=== PATIENT | male | born 1955 | race Two or more races ===

== ENCOUNTER 2020-02-09 20:14 | Inpatient (IN) | payer MEDICARE, MEDICAID ==
[~2020-02-09] VITALS: Ht 172.7 cm; Wt 78.0 kg
[2020-02-09] MEDS ORDERED: ALBUTEROL SULFATE 5 MG/ML 20 ML NEB SOLN [BULK] NEB ONE (20:15)
[2020-02-09] MEDS ORDERED: IPRATROPIUM BROMIDE 0.5 MG/2.5 ML NEB SOLUTION NEB ONE (20:15)
[2020-02-09] MEDS ORDERED: MethylPREDNISolone SOD SUCC 125 MG/2 ML VIAL IVP ONE (20:15)
[2020-02-09] MEDS ORDERED: UNKNOWN DIABETIC MED PO (20:27)
[2020-02-09] MEDS ORDERED: ALBU8HFA IH (20:27)
[2020-02-09 20:33] LABS: HEMATOCRIT 49.1 % (41-53); HEMOGLOBIN 15.7 g/dL (13.5-17.5); MEAN CORPUSCULAR HEMOGLOBIN 29.5 pg (26.0-34.0); MEAN CORPUSCULAR VOLUME 92 fL (80-100); PLATELET COUNT (AUTO) 342 K/uL (150-450); RED BLOOD CELL COUNT(AUTO) 5.32 MIL/uL (4.50-5.90); RED CELL DISTRIBUTION WIDTH 14.7 % (11.5-14.5)
[2020-02-09 20:46] LABS: CALCIUM, TOTAL 8.5 mg/dL (8.8-10.5); CREATININE 1.34 mg/dL (0.60-1.30)
[2020-02-09] MEDS ORDERED: AZITHROMYCIN 500 MG/NS 250 ML IV ONE (21:00)
[2020-02-09] MEDS ORDERED: CefTRIAXone 1 GM/DEXTROSE 50 ML IV ONE (21:00)
[2020-02-09] MEDS ORDERED: 0.9% SODIUM CHLORIDE 15 ML NEB SOLUTION NEB ONE (21:02)
[2020-02-09 21:10] LABS: ALBUMIN 2.4 g/dL (3.4-5.0); BILIRUBIN,TOTAL 0.5 mg/dL (0.1-1.0); TOTAL PROTEIN, SERUM 7.6 g/dL (6.4-8.2)
[2020-02-09] MEDS ORDERED: ONDANSETRON HCL 4 MG/2 ML VIAL IVP PRN ×2 (21:30→22:30)
[2020-02-09] MEDS ORDERED: ACETAMINOPHEN 325 MG TABLET PO PRN (21:30)
[2020-02-09] MEDS ORDERED: FUROSEMIDE 40 MG/4 ML VIAL IVP ONE (21:30)
[2020-02-09 21:42] LABS: ABG A-A DIFF O2 185.3 mmHg (10-20.0); ABG BASE EXCESS 7.3 mmol/L (-2.0-3.0); ABG CARBOXYHEMOGLOBIN 1.4 % (0.0-1.5); ABG HCO3 27.5 mmol/L (22.0-26.0); ABG METHEMOGLOBIN 0.3 % (0.0-1.5); ABG OXYGEN CONTENT 20.9 mL/dL (15.0-23.0); ABG OXYGEN SATURATION 92.3 % (95.0-98.0); ABG OXYHEMOGLOBIN 90.7 % (94.0-100.0); ABG PH 7.221 (7.35-7.450); ABG TOTAL HEMOGLOBIN 16.4 G/dL (12.0-18.0); PO2, ARTERIAL BG 73.2 mmHg (79.0-87.0); SOURCE, BLOOD GAS ARTERIAL; TEMPERATURE, FAHRENHEIT, BG 98.2 FAHREN (96.0-98.6)
[2020-02-09 21:44] LABS: ABG PCO2 87 mmHg (35-45); O2 DEVICE,BLOOD GAS BIPAP (ROOM AIR); SITE, BLOOD GAS RT RADIAL; SPONTANEOUS VT, BG 371 ml
[2020-02-09 22:03] LABS: BAND NEUTROPHILS % (MANUAL) 20 % (0-5); LYMPHOCYTES % (MANUAL) 8 % (22-44); MONOCYTES % (MANUAL) 10 % (2-9); MYELOCYTES % 2 % (0-0); REACTIVE LYMPHOCYTES 1 % (0-0); SEGMENTED NEUTROPHILS % 59 % (40-70)
[2020-02-09] MEDS ORDERED: 0.9% SODIUM CHLORIDE 10 ML SYRINGE IVP PRN (22:30)
[2020-02-09] MEDS ORDERED: RAPID SEQUENCE KIT [RSI] 1 EACH KIT ONE (22:50)
[2020-02-09] MEDS ORDERED: SUCCINYLCHOLINE CHLORIDE 20 MG/ML 10 ML VIAL ONE (22:51)
[2020-02-09] MEDS ORDERED: ALBUTEROL SULFATE 2.5 MG/0.5 ML NEB SOLUTION NEB SCH (23:00)
[2020-02-09] MEDS ORDERED: VANCOMYCIN HCL 1.5 GM in DEXTROSE 5%-WATER 250 ML IV ONE (23:00)
[2020-02-09] MEDS ORDERED: IPRATROPIUM BROMIDE 0.5 MG/2.5 ML NEB SOLUTION NEB SCH (23:00)
[2020-02-10] VITALS (7 sets, daily range): BP systolic 92–138; BP diastolic 63–84
[2020-02-10 00:34] LABS: INFLUENZA TYPE A NEGATIVE FOR TYPE A (NEGATIVE); INFLUENZA TYPE B NEGATIVE FOR TYPE B (NEGATIVE)
[2020-02-10 00:43] LABS: APPEARANCE,URINE CLEAR (CLEAR); BILIRUBIN,URINE NEGATIVE (NEGATIVE); GLUCOSE, URINE (UA) NEGATIVE (NEGATIVE); KETONES,URINE NEGATIVE (NEGATIVE); LEUKOCYTE ESTERASE ,URINE NEGATIVE (NEGATIVE); NITRATE,URINE NEGATIVE (NEGATIVE); OCCULT BLOOD,URINE TRACE (NEGATIVE); PH,URINE 5.5 (5.0-8.0); PROTEIN,URINE NEGATIVE (NEGATIVE)
[2020-02-10] MEDS ORDERED: SODIUM CHLORIDE 0.9% 1,000 ML IV ONE (00:45)
[2020-02-10] MEDS ORDERED: FentaNYL CITRATE-PF 100 MCG/2 ML VIAL IVP ONE (00:45)
[2020-02-10 00:58] LABS: BACTERIA,URINE None Seen /HPF (None Seen); WBC,URINE 0-2 /HPF (0-5)
[2020-02-10 00:59] LABS: COARSE GRANULAR CASTS,URINE 0-2 /LPF (None Seen); SQUAMOUS EPITHELIAL CELL,UR None Seen /LPF (None Seen)
[2020-02-10 01:09] LABS: ABG A-A DIFF O2 264.6 mmHg (10-20.0); ABG BASE EXCESS 0.6 mmol/L (-2.0-3.0); ABG CARBOXYHEMOGLOBIN 0.7 % (0.0-1.5); ABG HCO3 24.2 mmol/L (22.0-26.0); ABG METHEMOGLOBIN 0.5 % (0.0-1.5); ABG OXYGEN CONTENT 22.2 mL/dL (15.0-23.0); ABG OXYGEN SATURATION 99.7 % (95.0-98.0); ABG OXYHEMOGLOBIN 98.5 % (94.0-100.0); ABG PCO2 54 mmHg (35-45); ABG PH 7.315 (7.35-7.450); ABG TOTAL HEMOGLOBIN 15.3 G/dL (12.0-18.0); PO2, ARTERIAL BG 395.1 mmHg (79.0-87.0); SOURCE, BLOOD GAS ARTERIAL; TEMPERATURE, FAHRENHEIT, BG 98.2 FAHREN (96.0-98.6)
[2020-02-10 01:10] LABS: O2 DEVICE,BLOOD GAS VENTILATOR (ROOM AIR); PEEP,BG 5 cm H2O; SITE, BLOOD GAS RT RADIAL; SPONTANEOUS VT, BG 490 ml; VT, ABG 500 ml
[2020-02-10] MEDS: HEPARIN SODIUM,PORCINE 5,000 UNITS/ML VIAL SQ SCH ×3 (01:27→15:35)
[2020-02-10] MEDS: OSELTAMIVIR PHOSPHATE 75 MG CAPSULE GT SCH ×2 (01:27→09:00)
[2020-02-10] MEDS: PROPOFOL 1000 MG/ISO-OSM 100 ML IV PRN ×2 (02:33→03:57)
[2020-02-10] MEDS ORDERED: SODIUM CHLORIDE 0.9% 250 ML IV ONE (03:19)
[2020-02-10] MEDS: PIPERACILLIN/TAZO 3.375 GM/D5W 50 ML IV SCH ×4 (03:57→22:22)
[2020-02-10] MEDS ORDERED: INFLUENZA VIRUS VACCINE QVS 2019-20 (3YR+)/PF 60 MCG/0.5 ML SYRINGE IM ONE (05:15)
[2020-02-10 06:17] LABS: HEMATOCRIT 45.2 % (41-53); HEMOGLOBIN 14.2 g/dL (13.5-17.5); MEAN CORPUSCULAR HEMOGLOBIN 29.2 pg (26.0-34.0); MEAN CORPUSCULAR HGB CONC 31.5 G/dL (31.0-37.0); MEAN CORPUSCULAR VOLUME 93 fL (80-100); PLATELET COUNT (AUTO) 304 K/uL (150-450); RED BLOOD CELL COUNT(AUTO) 4.88 MIL/uL (4.50-5.90); RED CELL DISTRIBUTION WIDTH 14.4 % (11.5-14.5)
[2020-02-10 06:23] LABS: ANION GAP 7 mmol/L (8-16); CALCIUM, TOTAL 7.3 mg/dL (8.8-10.5); CARBON DIOXIDE 32 mmol/L (22-29); CHLORIDE 102 mmol/L (98-107); CREATININE 1.19 mg/dL (0.60-1.30); GLOMERULAR FILTR. RATE CALC > 60 mL/min (>60); GLUCOSE,RANDOM 241 mg/dL (70-110); POTASSIUM 4.8 mmol/L (3.5-5.1); SODIUM SERUM 141 mmol/L (136-145); UREA NITROGEN, BLOOD 37 mg/dL (7-18)
[2020-02-10] MEDS ORDERED: VANCOMYCIN HCL 750 MG in DEXTROSE 5%-WATER 250 ML IV SCH (07:00)
[2020-02-10 08:30] LABS: BAND NEUTROPHILS % (MANUAL) 15 % (0-5); EOSINOPHILS % (MANUAL) 1 % (1-6); LYMPHOCYTES % (MANUAL) 7 % (22-44); MONOCYTES % (MANUAL) 8 % (2-9); SEGMENTED NEUTROPHILS % 69 % (40-70)
[2020-02-10] MEDS: PANTOPRAZOLE SODIUM 40 MG/VIAL IVP SCH (08:31)
[2020-02-10 08:32] LABS: PLATELET MORPHOLOGY COMMENT GIANT PLTS; WBC MORPHOLOGY TOXIC GRANULATION
[2020-02-10] MEDS: PROPOFOL 1000 MG/ISO-OSM 100 ML IV SCH ×2 (09:58→18:07)
[2020-02-10] MEDS: IPRATROPIUM BROMIDE 0.5 MG/2.5 ML NEB SOLUTION NEB PRN (11:41)
[2020-02-10] MEDS: ALBUTEROL SULFATE 2.5 MG/0.5 ML NEB SOLUTION NEB PRN (11:42)
[2020-02-10] MEDS ORDERED: ETOMIDATE 2 MG/ML 10 ML VIAL IV ONE (14:39)
[2020-02-10] MEDS ORDERED: ROCURONIUM BROMIDE 10 MG/ML 5 ML VIAL IV ONE (14:39)
[2020-02-10] MEDS: VANCOMYCIN HCL 1 GM/D5% WATER 200 ML IV SCH (18:07)
[2020-02-10] MEDS: DOXYCYCLINE HYCLATE 100 MG in DEXTROSE 5%-WATER 100 ML IV SCH (20:30)
[2020-02-10] MEDS ORDERED: AZITHROMYCIN 500 MG/NS 250 ML IV SCH (23:00)
[2020-02-11] VITALS: BP 101/66
[2020-02-11] MEDS: HEPARIN SODIUM,PORCINE 5,000 UNITS/ML VIAL SQ SCH ×3 (00:35→15:05)
[2020-02-11 04:00] VITALS: BP 97/67
[2020-02-11] MEDS: PIPERACILLIN/TAZO 3.375 GM/D5W 50 ML IV SCH ×4 (04:02→22:13)
[2020-02-11] MEDS: PROPOFOL 1000 MG/ISO-OSM 100 ML IV SCH ×3 (05:03→13:04)
[2020-02-11 06:23] LABS: MEAN CORPUSCULAR HEMOGLOBIN 29.6 pg (26.0-34.0); MEAN CORPUSCULAR HGB CONC 32.4 G/dL (31.0-37.0); MEAN CORPUSCULAR VOLUME 91 fL (80-100); PLATELET COUNT (AUTO) 292 K/uL (150-450); RED BLOOD CELL COUNT(AUTO) 4.71 MIL/uL (4.50-5.90); RED CELL DISTRIBUTION WIDTH 14.1 % (11.5-14.5)
[2020-02-11] MEDS: VANCOMYCIN HCL 1 GM/D5% WATER 200 ML IV SCH ×2 (06:35→17:45)
[2020-02-11 06:42] LABS: CALCIUM, TOTAL 7.8 mg/dL (8.8-10.5); CREATININE 1.21 mg/dL (0.60-1.30); POTASSIUM 4.5 mmol/L (3.5-5.1); VANCOMYCIN,RANDOM 14.4 mcg/mL (25.0-50.0)
[2020-02-11 08:00] VITALS: BP 89/61
[2020-02-11] MEDS: PANTOPRAZOLE SODIUM 40 MG/VIAL IVP SCH (08:03)
[2020-02-11] MEDS: DOXYCYCLINE HYCLATE 100 MG in DEXTROSE 5%-WATER 100 ML IV SCH ×2 (09:17→21:59)
[2020-02-11 09:24] LABS: BAND NEUTROPHILS % (MANUAL) 10 % (0-5); LYMPHOCYTES % (MANUAL) 5 % (22-44); MONOCYTES % (MANUAL) 6 % (2-9); SEGMENTED NEUTROPHILS % 79 % (40-70)
[2020-02-11] MEDS: ALBUTEROL SULFATE 2.5 MG/0.5 ML NEB SOLUTION NEB PRN ×4 (11:18→22:41)
[2020-02-11] MEDS: IPRATROPIUM BROMIDE 0.5 MG/2.5 ML NEB SOLUTION NEB PRN ×4 (11:18→22:41)
[2020-02-11 12:00] VITALS: BP 92/61
[2020-02-11] MEDS ORDERED: SODIUM CHLORIDE 0.9% 500 ML IV ONE (13:31)
[2020-02-11] MEDS: DEXMEDETOMIDINE HCL 200 MCG in SODIUM CHLORIDE 0.9% 48 ML IV SCH (14:29)
[2020-02-11 16:00] VITALS: BP 129/69
[2020-02-11 19:50] LABS: AMPHET/METH SCREEN,URINE NEGATIVE (NEGATIVE); BARBITURATE SCREEN, URINE NEGATIVE (NEGATIVE); BENZODIAZEPINES SCREEN,URINE NEGATIVE (NEGATIVE); CANNABINOID SCREEN,URINE NEGATIVE (NEGATIVE); COCAINE SCREEN,URINE NEGATIVE (NEGATIVE); METHADONE SCREEN, URINE NEGATIVE (NEGATIVE); OPIATE SCREEN,URINE NEGATIVE (NEGATIVE); PHENCYCLIDINE SCREEN,URINE NEGATIVE (NEGATIVE)
[2020-02-11 20:00] VITALS: BP 104/71
[2020-02-11] MEDS ORDERED: SODIUM CHLORIDE 0.9% 250 ML IV ONE (21:40)
[2020-02-12] VITALS: BP 86/61
[2020-02-12] MEDS: FentaNYL CITRATE PF 500 MCG in DEXTROSE 5%-WATER 90 ML IV PRN ×2 (00:05→11:36)
[2020-02-12] MEDS: DEXMEDETOMIDINE HCL 200 MCG in SODIUM CHLORIDE 0.9% 48 ML IV SCH ×2 (00:06→10:17)
[2020-02-12] MEDS: HEPARIN SODIUM,PORCINE 5,000 UNITS/ML VIAL SQ SCH ×6 (00:25→23:27)
[2020-02-12] MEDS ORDERED: LORazepam 2 MG/ML VIAL IVP PRN (02:00)
[2020-02-12] MEDS: ALBUTEROL SULFATE 2.5 MG/0.5 ML NEB SOLUTION NEB PRN ×2 (02:58→08:05)
[2020-02-12] MEDS: IPRATROPIUM BROMIDE 0.5 MG/2.5 ML NEB SOLUTION NEB PRN ×2 (02:58→08:06)
[2020-02-12] MEDS ORDERED: NOREPINEPHRINE 4 MG/D5%-WATER 250 ML IV PRN (03:56)
[2020-02-12 04:00] VITALS: BP 79/58
[2020-02-12] MEDS: PIPERACILLIN/TAZO 3.375 GM/D5W 50 ML IV SCH ×3 (04:18→15:50)
[2020-02-12 06:43] LABS: HEMATOCRIT 46.7 % (41-53); HEMOGLOBIN 15.3 g/dL (13.5-17.5); MEAN CORPUSCULAR HEMOGLOBIN 30.1 pg (26.0-34.0); MEAN CORPUSCULAR HGB CONC 32.8 G/dL (31.0-37.0); MEAN CORPUSCULAR VOLUME 92 fL (80-100); PLATELET COUNT (AUTO) 311 K/uL (150-450); RED CELL DISTRIBUTION WIDTH 14.2 % (11.5-14.5)
[2020-02-12 06:46] LABS: INR 1.1 (0.9-1.1); PROTHROMBIN TIME 11.4 SEC (9.4-11.6)
[2020-02-12 06:56] LABS: ALANINE AMINOTRANSFERASE 98 U/L (12-78); ALKALINE PHOSPHATASE 162 U/L (46-116); ANION GAP 4 mmol/L (8-16); ASPARTATE AMINOTRANSFERASE 53 U/L (15-37); BILIRUBIN,TOTAL 0.7 mg/dL (0.1-1.0); CALCIUM, TOTAL 7.9 mg/dL (8.8-10.5); CARBON DIOXIDE 34 mmol/L (22-29); CHLORIDE 101 mmol/L (98-107); GLOMERULAR FILTR. RATE CALC > 60 mL/min (>60); GLUCOSE,RANDOM 149 mg/dL (70-110); POTASSIUM 4.3 mmol/L (3.5-5.1); SODIUM SERUM 139 mmol/L (136-145); TOTAL PROTEIN, SERUM 6.6 g/dL (6.4-8.2); UREA NITROGEN, BLOOD 30 mg/dL (7-18); VANCOMYCIN,RANDOM 16.7 mcg/mL (25.0-50.0)
[2020-02-12] MEDS: VANCOMYCIN HCL 1 GM/D5% WATER 200 ML IV SCH ×2 (07:36→15:51)
[2020-02-12 08:00] VITALS: BP 112/68
[2020-02-12] MEDS: PANTOPRAZOLE SODIUM 40 MG/VIAL IVP SCH (08:41)
[2020-02-12 08:52] LABS: BAND NEUTROPHILS % (MANUAL) 4 % (0-5); LYMPHOCYTES % (MANUAL) 14 % (22-44); MONOCYTES % (MANUAL) 12 % (2-9); SEGMENTED NEUTROPHILS % 70 % (40-70)
[2020-02-12] MEDS: DOXYCYCLINE HYCLATE 100 MG in DEXTROSE 5%-WATER 100 ML IV SCH (10:16)
[2020-02-12] MEDS ORDERED: 0.9% SODIUM CHLORIDE 5 ML NEB SOLUTION NEB ONE (10:58)
[2020-02-12] MEDS ORDERED: ALBUTEROL SULFATE 2.5 MG/0.5 ML NEB SOLUTION NEB ONE (10:58)
[2020-02-12 12:00] VITALS: BP 130/75
[2020-02-12] MEDS: ALBUTEROL SULFATE 2.5 MG/0.5 ML NEB SOLUTION NEB SCH ×3 (15:00→23:00)
[2020-02-12] MEDS: IPRATROPIUM BROMIDE 0.5 MG/2.5 ML NEB SOLUTION NEB SCH ×3 (15:00→23:00)
[2020-02-12] MEDS: LEVOFLOXACIN 250 MG TABLET PO SCH (16:30)
[2020-02-12 20:00] VITALS: BP 126/66
[2020-02-13] VITALS: BP 118/74
[2020-02-13] MEDS: IPRATROPIUM BROMIDE 0.5 MG/2.5 ML NEB SOLUTION NEB SCH ×6 (03:00→23:47)
[2020-02-13] MEDS: ALBUTEROL SULFATE 2.5 MG/0.5 ML NEB SOLUTION NEB SCH ×6 (03:00→23:46)
[2020-02-13 04:00] VITALS: BP 130/70
[2020-02-13 06:06] LABS: ANION GAP 2 mmol/L (8-16); CALCIUM, TOTAL 8.3 mg/dL (8.8-10.5); CARBON DIOXIDE 35 mmol/L (22-29); CHLORIDE 103 mmol/L (98-107); CREATININE 0.82 mg/dL (0.60-1.30); GLOMERULAR FILTR. RATE CALC > 60 mL/min (>60); GLUCOSE,RANDOM 87 mg/dL (70-110); POTASSIUM 4.3 mmol/L (3.5-5.1); SODIUM SERUM 140 mmol/L (136-145); UREA NITROGEN, BLOOD 18 mg/dL (7-18)
[2020-02-13 08:00] VITALS: BP 105/62
[2020-02-13] MEDS: HEPARIN SODIUM,PORCINE 5,000 UNITS/ML VIAL SQ SCH ×3 (08:00→23:59)
[2020-02-13] MEDS: PANTOPRAZOLE SODIUM 40 MG/VIAL IVP SCH (08:11)
[2020-02-13] MEDS: LEVOFLOXACIN 250 MG TABLET PO SCH (08:11)
[2020-02-13 12:00] VITALS: BP 125/87
[2020-02-13 16:00] VITALS: BP 100/60
[2020-02-13 21:06] VITALS: BP 159/97
[2020-02-14 00:03] VITALS: BP 111/62
[2020-02-14] MEDS: IPRATROPIUM BROMIDE 0.5 MG/2.5 ML NEB SOLUTION NEB SCH ×4 (03:00→15:00)
[2020-02-14] MEDS: ALBUTEROL SULFATE 2.5 MG/0.5 ML NEB SOLUTION NEB SCH ×4 (03:00→15:00)
[2020-02-14 04:05] VITALS: BP 121/68
[2020-02-14 08:16] LABS: ANION GAP 0 mmol/L (8-16); CARBON DIOXIDE 37 mmol/L (22-29); CHLORIDE 101 mmol/L (98-107); CREATININE 0.76 mg/dL (0.60-1.30); GLOMERULAR FILTR. RATE CALC > 60 mL/min (>60); GLUCOSE,RANDOM 138 mg/dL (70-110); POTASSIUM 4.2 mmol/L (3.5-5.1); SODIUM SERUM 138 mmol/L (136-145); UREA NITROGEN, BLOOD 19 mg/dL (7-18)
[2020-02-14 08:22] VITALS: BP 99/51
[2020-02-14] MEDS: HEPARIN SODIUM,PORCINE 5,000 UNITS/ML VIAL SQ SCH (09:29)
[2020-02-14] MEDS: LEVOFLOXACIN 250 MG TABLET PO SCH (09:30)
[2020-02-14] MEDS: PANTOPRAZOLE SODIUM 40 MG/VIAL IVP SCH (09:30)
[2020-02-14 15:52] LABS: LEGIONELLA PNEUMO AG URINE Negative (Negative); ORGANISM ID Not indicated.; S PNEUMO SOURCE Urine; STREP PNEUMONIAE AG URINE Negative (Negative); STREP.PNEUMO BODY FLUID CULT. Not indicated.
== END 2020-02-14 14:40 | disposition left against medical advice (07) | DRG 871 ==
LOC: EMS 20:16 → ICU 22:30 → 5N 02-13 19:50
PROVIDERS: ADMIT Internal Medicine; ATTEND Internal Medicine
PROC: 5A09357 Assistance with Respiratory Ventilation, Less than 24 Consecutive Hours, Continuous Positive Airway Pressure (ICD-10-PCS; 2020-02-09)
PROC: 5A1945Z Respiratory Ventilation, 24-96 Consecutive Hours (ICD-10-PCS; principal; 2020-02-10)
PROC: 0BH17EZ Insertion of Endotracheal Airway into Trachea, Via Natural or Artificial Opening (ICD-10-PCS; 2020-02-10)
DX: A41.9 Sepsis, unspecified organism (principal); J18.9 Pneumonia, unspecified organism; J96.01 Acute respiratory failure with hypoxia; J96.02 Acute respiratory failure with hypercapnia; E43 Unspecified severe protein-calorie malnutrition; J44.1 Chronic obstructive pulmonary disease with (acute) exacerbation; J44.0 Chronic obstructive pulmonary disease with (acute) lower respiratory infection; E87.2 Acidosis; E11.9 Type 2 diabetes mellitus without complications; I50.9 Heart failure, unspecified; Z53.29 Procedure and treatment not carried out because of patient's decision for other reasons; Z68.26 Body mass index [BMI] 26.0-26.9, adult
CPT/HCPCS: 36600; 71250; 80307; 82805; 83605; 83735; 87015; 87040; 87081; 87206; 87449; 87635; 87804; 87899; 92610; 93005; 93306; 93970; 94002; 94003; 94640; 94660; 99291; C9113; G0378; J0330; J0456; J0696; J1644; J1940; J2060; J2543; J2704; J2930; J3010; J3370; J3490; J7030; J7040; J7050; J7060

== ENCOUNTER → 2022-06-24 | Outpatient (CLI) | payer MEDICARE, MEDICAID ==
[~2022-06-24] VITALS: Ht 162.6 cm; Wt 66.0 kg
[~2022-06-24] MED LIST: ALBU8HFA IH; UNKNOWN DIABETIC MED PO
[2022-06-24 16:00] VITALS: BP 112/62
== END | disposition home or self-care (01) ==
LOC: SRCNTR 14:19
PROVIDERS: ATTEND Internal Medicine
DX: E11.9 Type 2 diabetes mellitus without complications (principal); J44.9 Chronic obstructive pulmonary disease, unspecified; J18.9 Pneumonia, unspecified organism; Z87.891 Personal history of nicotine dependence
CPT/HCPCS: 93005; G0463

== ENCOUNTER 2022-08-10 16:43 | Inpatient (IN) | payer MEDICARE, MEDICAID ==
[~2022-08-10] VITALS: Ht 167.6 cm; Wt 64.8 kg
[2022-08-10 18:09] LABS: BASOPHILS % (AUTO) 0.7 % (0.0-2.0); EOSINOPHILS % (AUTO) 7.2 % (1.0-6.0); HEMATOCRIT 43.4 % (41-53); HEMOGLOBIN 14.6 g/dL (13.5-17.5); LYMPHOCYTES # (AUTO) 1.7 K/uL (1.0-4.8); LYMPHOCYTES % (AUTO) 20.6 % (22.0-44.0); MEAN CORPUSCULAR HEMOGLOBIN 29.3 pg (26.0-34.0); MEAN CORPUSCULAR HGB CONC 33.5 G/dL (31.0-37.0); MEAN CORPUSCULAR VOLUME 87 fL (80-100); MONOCYTES # (AUTO) 1.2 K/uL (0.1-1.0); MONOCYTES % (AUTO) 13.8 % (2.0-9.0); NEUTROPHILS # (AUTO) 4.9 K/uL (1.8-7.7); NEUTROPHILS % (AUTO) 57.7 % (40.0-70.0); PLATELET COUNT (AUTO) 228 K/uL (150-450); RED BLOOD CELL COUNT(AUTO) 4.98 MIL/uL (4.50-5.90); RED CELL DISTRIBUTION WIDTH 14.7 % (11.5-14.5)
[2022-08-10 18:23] LABS: LACTIC ACID 0.8 mmol/L (0.4-2.0)
[2022-08-10 18:27] LABS: ANION GAP 7 mmol/L (8-16); CALCIUM, TOTAL 8.9 mg/dL (8.8-10.5); CARBON DIOXIDE 29 mmol/L (22-29); CHLORIDE 104 mmol/L (98-107); CREATININE 0.76 mg/dL (0.60-1.30); GLUCOSE,RANDOM 120 mg/dL (70-110); POTASSIUM 3.7 mmol/L (3.5-5.1); SODIUM SERUM 140 mmol/L (136-145); UREA NITROGEN, BLOOD 23 mg/dL (7-18)
[2022-08-10 18:29] LABS: GLOMERULAR FILTR. RATE CALC > 60 mL/min (>60)
[2022-08-10] MEDS ORDERED: QUEtiapine FUMARATE 100 MG TABLET PO ONE (18:30)
[2022-08-10] MEDS ORDERED: LORazepam 2 MG TABLET PO ONE (18:30)
[2022-08-10 18:32] LABS: ALANINE AMINOTRANSFERASE 39 U/L (12-78); ALKALINE PHOSPHATASE 114 U/L (46-116); ASPARTATE AMINOTRANSFERASE 29 U/L (15-37); BILIRUBIN,TOTAL 0.3 mg/dL (0.1-1.0); LIPASE 116 U/L (73-393); TOTAL PROTEIN, SERUM 6.8 g/dL (6.4-8.2)
[2022-08-10 18:36] LABS: AMMONIA 14 umol/L (11-32)
[2022-08-10 18:37] LABS: ALBUMIN 3.3 g/dL (3.4-5.0)
[2022-08-10 19:28] LABS: COVID AG,FIA SOURCE NASOPHARYNGEAL
[2022-08-10] MEDS ORDERED: ONDANSETRON HCL 4 MG/2 ML VIAL IVP PRN ×2 (19:45→21:00)
[2022-08-10] MEDS ORDERED: ACETAMINOPHEN 325 MG TABLET PO PRN ×2 (19:45→21:00)
[2022-08-10] MEDS ORDERED: 0.9% SODIUM CHLORIDE 10 ML SYRINGE IVP PRN (19:45)
[2022-08-10 19:46] LABS: INFLUENZA TYPE A NEGATIVE FOR TYPE A (NEGATIVE); INFLUENZA TYPE B NEGATIVE FOR TYPE B (NEGATIVE)
[2022-08-10] MEDS ORDERED: ALBUTEROL SULFATE 2.5 MG/0.5 ML NEB SOLUTION NEB PRN (21:00)
[2022-08-10] MEDS ORDERED: IPRATROPIUM BROMIDE 0.5 MG/2.5 ML NEB SOLUTION NEB PRN (21:00)
[2022-08-10] MEDS ORDERED: IOHEXOL 350 MG/ML 100 ML VIAL ONE (21:10)
[2022-08-10] MEDS ORDERED: SODIUM CHLORIDE 0.9% 100 ML ONE (21:10)
[2022-08-10 21:11] LABS: ABG BASE EXCESS 1.1 mmol/L (-2.0-3.0); ABG HCO3 25.4 mmol/L (22.0-26.0); ABG METHEMOGLOBIN 0.3 % (0.0-1.5); ABG OXYGEN CONTENT 19.2 mL/dL (15.0-23.0); ABG OXYGEN SATURATION 93.9 % (95.0-98.0); ABG OXYHEMOGLOBIN 93.6 % (94.0-100.0); ABG PCO2 40 mmHg (35-45); ABG PH 7.425 (7.35-7.450); ABG TOTAL HEMOGLOBIN 14.6 G/dL (12.0-18.0); O2 DEVICE,BLOOD GAS ROOM AIR (ROOM AIR); PO2, ARTERIAL BG 66.8 mmHg (79.0-87.0); SITE, BLOOD GAS RT RADIAL; SOURCE, BLOOD GAS ARTERIAL; TEMPERATURE, FAHRENHEIT, BG 98.6 FAHREN (96.0-98.6)
[2022-08-10] MEDS ORDERED: DEXTROSE 50%-WATER 25 GM/50 ML SYRINGE IVP PRN (21:30)
[2022-08-10] MEDS ORDERED: INSULIN LISPRO 100 UNITS/ML SQ PRN (21:30)
[2022-08-10] MEDS: HEPARIN SODIUM,PORCINE 5,000 UNITS/ML VIAL SQ SCH (23:06)
[2022-08-11 01:25] VITALS: BP 93/55
[2022-08-11] MEDS ORDERED: INSLAN SQ (04:06)
[2022-08-11] MEDS ORDERED: [UNRECOGNIZED DRUG - REMARK] CHEW (04:06)
[2022-08-11] MEDS ORDERED: ACET-784 PO (04:07)
[2022-08-11] MEDS ORDERED: SODIUM CHLORIDE 0.9% 250 ML IV ONE (04:15)
[2022-08-11 06:02] VITALS: BP 97/54
[2022-08-11 06:27] LABS: CALCIUM, TOTAL 8.8 mg/dL (8.8-10.5); CARBON DIOXIDE 28 mmol/L (22-29); GLUCOSE,RANDOM 126 mg/dL (70-110); UREA NITROGEN, BLOOD 24 mg/dL (7-18)
[2022-08-11 06:33] LABS: ANION GAP -1 mmol/L (8-16); CHLORIDE 107 mmol/L (98-107); SODIUM SERUM 134 mmol/L (136-145)
[2022-08-11 06:37] LABS: GLOMERULAR FILTR. RATE CALC > 60 mL/min (>60)
[2022-08-11 06:46] LABS: GLUCOMETER DEV NAME(LOC) 5S.2B; GLUCOSE,POINT OF CARE 107 MG/DL (70-110)
[2022-08-11 07:52] VITALS: BP 96/60
[2022-08-11] MEDS: HEPARIN SODIUM,PORCINE 5,000 UNITS/ML VIAL SQ SCH ×3 (09:04→23:06)
[2022-08-11 10:35] VITALS: BP 95/64
[2022-08-11 13:39] LABS: FREE T4 (FREE THYROXINE) 1.28 ng/dL (0.76-1.46); THYROID STIMULATING HORMONE 0.76 uIU/mL (0.36-3.74)
[2022-08-11 15:03] VITALS: BP 99/58
[2022-08-11 20:16] LABS: GLUCOMETER DEV NAME(LOC) 5S.2B; GLUCOSE,POINT OF CARE 95 MG/DL (70-110)
[2022-08-11] MEDS: INSULIN GLARGINE,HUM.REC.ANLOG 100 UNITS/ML SQ SCH (20:31)
[2022-08-11 21:15] VITALS: BP 98/62
[2022-08-11 21:17] LABS: GLUCOMETER DEV NAME(LOC) 5S.2B; GLUCOSE,POINT OF CARE 118 MG/DL (70-110)
[2022-08-12 00:55] VITALS: BP 92/43
[2022-08-12 04:50] VITALS: BP 104/67
[2022-08-12 07:16] LABS: BASOPHILS % (AUTO) 0.7 % (0.0-2.0); HEMATOCRIT 43.2 % (41-53); HEMOGLOBIN 14.3 g/dL (13.5-17.5); LYMPHOCYTES % (AUTO) 22.9 % (22.0-44.0); MEAN CORPUSCULAR HEMOGLOBIN 29.1 pg (26.0-34.0); MEAN CORPUSCULAR HGB CONC 33.1 G/dL (31.0-37.0); MEAN CORPUSCULAR VOLUME 88 fL (80-100); MONOCYTES # (AUTO) 0.8 K/uL (0.1-1.0); MONOCYTES % (AUTO) 9.7 % (2.0-9.0); NEUTROPHILS # (AUTO) 5.2 K/uL (1.8-7.7); NEUTROPHILS % (AUTO) 60.7 % (40.0-70.0); PLATELET COUNT (AUTO) 209 K/uL (150-450); RED BLOOD CELL COUNT(AUTO) 4.91 MIL/uL (4.50-5.90); RED CELL DISTRIBUTION WIDTH 14.3 % (11.5-14.5)
[2022-08-12 07:42] LABS: ALANINE AMINOTRANSFERASE 23 U/L (12-78); ALKALINE PHOSPHATASE 94 U/L (46-116); ANION GAP 4 mmol/L (8-16); ASPARTATE AMINOTRANSFERASE 18 U/L (15-37); BILIRUBIN,TOTAL 0.4 mg/dL (0.1-1.0); CALCIUM, TOTAL 8.7 mg/dL (8.8-10.5); CARBON DIOXIDE 29 mmol/L (22-29); CHLORIDE 110 mmol/L (98-107); CREATININE 0.73 mg/dL (0.60-1.30); GLUCOSE,RANDOM 88 mg/dL (70-110); POTASSIUM 3.8 mmol/L (3.5-5.1); SODIUM SERUM 143 mmol/L (136-145); TOTAL PROTEIN, SERUM 6.5 g/dL (6.4-8.2); UREA NITROGEN, BLOOD 20 mg/dL (7-18)
[2022-08-12 07:45] LABS: GLOMERULAR FILTR. RATE CALC > 60 mL/min (>60)
[2022-08-12 08:03] VITALS: BP 110/78
[2022-08-12] MEDS: HEPARIN SODIUM,PORCINE 5,000 UNITS/ML VIAL SQ SCH ×2 (09:11→15:57)
[2022-08-12 10:32] VITALS: BP 117/66
[2022-08-12 12:22] LABS: APPEARANCE,URINE CLEAR (CLEAR); BILIRUBIN,URINE NEGATIVE (NEGATIVE); GLUCOSE, URINE (UA) NEGATIVE (NEGATIVE); KETONES,URINE NEGATIVE (NEGATIVE); LEUKOCYTE ESTERASE ,URINE NEGATIVE (NEGATIVE); NITRATE,URINE NEGATIVE (NEGATIVE); OCCULT BLOOD,URINE NEGATIVE (NEGATIVE); PH,URINE 5.5 (5.0-8.0); PROTEIN,URINE TRACE mg/dL (NEGATIVE); SPECIFIC GRAVITIY, URINE 1.037 (1.003-1.030); UROBILINOGEN,URINE <=1.0 mg/dL (<=1.0)
[2022-08-12 12:28] LABS: AMPHET/METH SCREEN,URINE POSITIVE (NEGATIVE); BARBITURATE SCREEN, URINE NEGATIVE (NEGATIVE); BENZODIAZEPINES SCREEN,URINE NEGATIVE (NEGATIVE); CANNABINOID SCREEN,URINE NEGATIVE (NEGATIVE); COCAINE SCREEN,URINE NEGATIVE (NEGATIVE); METHADONE SCREEN, URINE NEGATIVE (NEGATIVE); OPIATE SCREEN,URINE NEGATIVE (NEGATIVE)
[2022-08-12 12:29] LABS: PHENCYCLIDINE SCREEN,URINE NEGATIVE (NEGATIVE)
[2022-08-12 12:34] LABS: BACTERIA,URINE None Seen /HPF (None Seen); RBC,URINE None Seen /HPF (0-2); WBC,URINE None Seen /HPF (0-5)
[2022-08-12 14:46] VITALS: BP 124/78
[2022-08-12 20:53] VITALS: BP 106/43
[2022-08-12] MEDS: INSULIN GLARGINE,HUM.REC.ANLOG 100 UNITS/ML SQ SCH (21:00)
[2022-08-12 21:26] LABS: GLUCOMETER DEV NAME(LOC) 5S.2B; GLUCOSE,POINT OF CARE 144 MG/DL (70-110)
[2022-08-12 23:21] LABS: GLUCOMETER DEV NAME(LOC) 5N.3; GLUCOSE,POINT OF CARE 109 MG/DL (70-110)
[2022-08-12 23:21] LABS: GLUCOMETER DEV NAME(LOC) 5N.3; GLUCOSE,POINT OF CARE 80 MG/DL (70-110)
[2022-08-13] MEDS: HEPARIN SODIUM,PORCINE 5,000 UNITS/ML VIAL SQ SCH ×3 (00:07→15:16)
[2022-08-13 00:29] VITALS: BP 93/51
[2022-08-13 05:30] VITALS: BP 98/53
[2022-08-13 08:59] VITALS: BP 107/67
[2022-08-13 12:43] VITALS: BP 96/54
[2022-08-13 14:36] LABS: GLUCOMETER DEV NAME(LOC) 5S.2B; GLUCOSE,POINT OF CARE 85 MG/DL (70-110)
[2022-08-13 15:02] VITALS: BP 116/62
[2022-08-13 20:40] VITALS: BP 95/67
[2022-08-13] MEDS: INSULIN GLARGINE,HUM.REC.ANLOG 100 UNITS/ML SQ SCH (20:54)
[2022-08-14 00:19] VITALS: BP 115/47
[2022-08-14] MEDS: HEPARIN SODIUM,PORCINE 5,000 UNITS/ML VIAL SQ SCH ×2 (00:40→09:19)
[2022-08-14 02:07] VITALS: BP 105/45
[2022-08-14 04:44] VITALS: BP 104/53
[2022-08-14 04:51] LABS: GLUCOMETER DEV NAME(LOC) 5N.3; GLUCOSE,POINT OF CARE 95 MG/DL (70-110)
[2022-08-14 04:52] LABS: GLUCOMETER DEV NAME(LOC) 5N.3; GLUCOSE,POINT OF CARE 118 MG/DL (70-110)
[2022-08-14 04:52] LABS: GLUCOMETER DEV NAME(LOC) 5N.3; GLUCOSE,POINT OF CARE 115 MG/DL (70-110)
[2022-08-14 07:06] LABS: GLUCOMETER DEV NAME(LOC) 6N.1; GLUCOSE,POINT OF CARE 94 MG/DL (70-110)
[2022-08-14 08:00] VITALS: BP 95/55
[2022-08-14 13:47] LABS: GLUCOMETER DEV NAME(LOC) 6N.2B; GLUCOSE,POINT OF CARE 102 MG/DL (70-110)
[2022-08-14 14:06] LABS: LEGIONELLA PNEUMO AG URINE Negative (Negative)
[2022-08-14] MEDS ORDERED: ALBU8HFA IH (14:36)
[2022-08-14] MEDS ORDERED: INSLAN SQ (14:36)
[2022-08-14 18:06] LABS: S PNEUMO SOURCE Urine; STREP PNEUMONIAE AG URINE Negative (Negative)
== END 2022-08-14 14:50 | disposition left against medical advice (07) | DRG 70 ==
LOC: EMS 16:45 → 5N 08-11 00:33 → 6S 08-14 01:52
PROVIDERS: ADMIT Internal Medicine; ATTEND Internal Medicine
DX: G93.40 Encephalopathy, unspecified (principal); J96.01 Acute respiratory failure with hypoxia; J98.19 Other pulmonary collapse; E11.9 Type 2 diabetes mellitus without complications; J44.9 Chronic obstructive pulmonary disease, unspecified; S60.429A Blister (nonthermal) of unspecified finger, initial encounter; X58.XXXA Exposure to other specified factors, initial encounter; Z20.822 Contact with and (suspected) exposure to COVID-19; Z78.9 Other specified health status; Z86.16 Personal history of COVID-19; Z79.899 Other long term (current) drug therapy; Y93.89 Activity, other specified; Y92.89 Other specified places as the place of occurrence of the external cause; Y99.8 Other external cause status
CPT/HCPCS: 70450; 71045; 71275; 80048; 80053; 80307; 81001; 82140; 82805; 82962; 83605; 83690; 84145; 84439; 84443; 84484; 85025; 87081; 87449; 87804; 87899; 93005; 99285; J1644; J1815; J7050; Q9967; 36415-L1; 36415-TC; U0003